=== PATIENT | female | born 1950 | race Caucasian/White ===

== ENCOUNTER 2018-03-07 10:08 | Emergency (ER) | payer MEDICARE ==
[2018-03-07 10:42] VITALS: BP 102/54
--- NOTE | 2018-03-07 11:42 | UC ---
Skin Complaint HPI - HPI Summary HPI Summary: 67 y/o female presents to the urgent care c/o poison tricia rash in her left forearm and abdomen since 03/02/2018. Pt reports she was seen at the ER on 2017 and Rx Medrol dose jovani and Benadryl PO to alleviate symptoms. however rash is worsen, has increased in size, painful and warm to touch. Pt has chills last night, but denies fever. Pain is 4/10 at touch. She has applied Aveno topical cream and Benadryl gel to alleviate symptoms w/o any improvement. Pain is worse at night time. Rash is also in the Rt hand. Pt denies SOB, throat tightening, abdominal pain, chest pain, N/V/D - History of Current Complaint Chief Complaint: UCSkin Time Seen by Provider: 03/07/18 11:13 Stated Complaint: POSION TRICIA Hx Obtained From: Patient ?: No - Menopausal Onset/Duration: Gradual Onset, Lasting Days, Still Present, Worse Since - 2 days Skin Exposure Onset/Duration: Days Ago - 5 days Timing: Constant Onset Severity: Mild Current Severity: Moderate Pain Intensity: 4 Pain Scale Used: 0-10 Numeric Location: Discrete - left forearm, Rt side of upper abdomen and Rt hand Character: Swelling, Pruritus, Pain, Hives, Redness Aggravating Factor(s): Humidity, Touch Alleviating Factor(s): Antihistamines, Other - Medrol dose jovani Associated Signs & Symptoms: Positive: Chills, Rash, Drainage - clear blisters, Tenderness. Negative: Nausea, Vomiting, Numbness, Weakness, Difficulty Breathing, Fever, Chest Pain, Hoarseness, Throat Tightening Related History: Possible Reaction to: Environmental Exposure - Allergy/Home Medications Allergies/Adverse Reactions: Allergies Allergy/AdvReac Type Severity Reaction Status Date / Time soy Allergy GI Upset Verified 03/07/18 10:29 Review of Systems Constitutional: Negative Skin: Rash - left forearm, Rt side upper abdomen and Rt hand red rash, Other - itchiness, w/ clear blisters Eyes: Negative ENT: Negative Respiratory: Negative Cardiovascular: Negative Gastrointestinal: Negative Genitourinary: Negative Motor: Negative Neurovascular: Negative Musculoskeletal: Other: - left forearm pain s/p poison tricia exposure Neurological: Negative Psychological: Negative Is Patient Immunocompromised?: No All Other Systems Reviewed And Are Negative: Yes PMH/Surg Hx/FS Hx/Imm Hx Previously Healthy: Yes Other Respiratory History: sleep apnea - Surgical History Surgical History: None - Family History Known Family History: Positive: Hypertension - Social History Occupation: Employed Part-time Lives: With Family Alcohol Use: None Substance Use Type: None Smoking Status (MU): Never Smoked Tobacco Physical Exam - Summary Physical Exam Summary: Vital Signs Reviewed: Yes General: well developed, well nourished old female sitting in the examining table w/o any apparent distress. Eyes: Positive: Conjunctiva Clear - PERRLA, EOMI ENT: Positive: Normal ENT inspection, Hearing grossly normal, Pharynx normal, TMs normal Neck: Positive: Supple, Nontender, No Lymphadenopathy Respiratory: Positive: Chest nontender, Lungs clear, Normal breath sounds Cardiovascular: Positive: RRR, No Murmur, Pulses Normal Abdomen Description: Positive: Nontender, No Organomegaly, Soft. Negative: CVA Tenderness (R), CVA Tenderness (L) Bowel Sounds: Positive: Present Musculoskeletal: Positive: Strength Intact, ROM Intact, No Edema Neurological Exam: Normal Psychological Exam: Normal Skin: Positive: rashes - RT ventral side of left forearm w/ erythematous patch w/ indistinct borders, warm to touch, swelling and tender to palpation. w/ scattered clear blisters. and vesicles, particularly in linear streaks w/ mild signs of excoriation, no drainage observed, t Triage Information Reviewed: Yes Vital Signs: Initial Vital Signs Temp 97.9 F 03/07/18 10:34 Pulse 60 03/07/18 10:34 Resp 18 03/07/18 10:34 BP 102/54 03/07/18 10:34 Pulse Ox 99 03/07/18 10:34 Course/Dx - Course Course Of Treatment: 67 y/o female presents to the urgent care c/o poison tricia rash in her left forearm and abdomen since 03/02/2018. Pt reports she was seen at the ER on 03/04/2018 and Rx Medrol dose jovani and Benadryl PO to alleviate symptoms. however rash is worsen, has increased in size, painful and warm to touch. Pt has chills last night, but denies fever. Pain is 4/10 at touch. She has applied Aveno topical cream and Benadryl gel to alleviate symptoms w/o any improvement. Pain is worse at night time. Rash is also in the Rt hand. Pt denies SOB, throat tightening, abdominal pain, chest pain, N/V/D. Hx obtained. Pt w/ left forearm cellulitis s/p poison tricia. Pt Rx Keflex PO, Clobetasol topical cream. rash demarcated with a skin marker and Advised if rash doubles in size and if she develops fever to go to the ER for further treatment. Pt understood and agreed w/ plan of care. - Differential Diagnoses - Skin Complaint Differential Diagnoses: Abscess, Cellulitis, Contact Dermatitis, Local Allergic Reaction, MRSA, Poison Tricia, Poison [place], Urticaria - Diagnoses Provider Diagnoses: 1- Left forearm cellulitis. 2- Poison Tricia rash Discharge - Sign-Out/Discharge Documenting (check all that apply): Patient Departure All imaging exams completed and their final reports reviewed: No Studies - Discharge Plan Condition: Stable Disposition: HOME Prescriptions: Cephalexin CAP* [Keflex CAP*] 500 mg PO QID #28 cap Clobetasol 0.05% OINT* 1 applic TOPICAL BID #1 tube Patient Education Materials: Cellulitis (ED), Poison Tricia (ED) Forms: *Work Release Referrals: Viral Hdez MD [Primary Care Provider] - 3 Days Elodia Willett [Medical Doctor] - 3 Days Additional Instructions: 1-Please continue taking Medrol dose jovani as directed. 2- Start taking Keflex PO to alleivate cellulitis. If rash doubles in size despite taking antibiotic and you develop fever please go immediately to the Er for further treatment. 3- Continue taking Benadryl PO to alleviate itchiness. Apply Clobetasol topical cream as directed. Avoid exposure to the sun. 4-If symptoms do not improve or worsen please f/u with your PCP or Insulation And Flooring Assembler in 3 days for further evaluation and treatment. 5- If symptoms worsen and you develop SOB or difficulty breathing please go immediately to the ER for further management. - Billing Disposition and Condition Condition: STABLE Disposition: Home
== END 2018-03-07 11:52 | disposition home or self-care (01) ==
LOC: UCEAST 10:08
DX: L03.114 Cellulitis of left upper limb (principal); L23.7 Allergic contact dermatitis due to plants, except food
CPT/HCPCS: 99212; G0463

== ENCOUNTER 2018-11-30 08:37 | Emergency (ER) | payer MEDICARE ==
[2018-11-30 08:48] VITALS: BP 114/62
--- NOTE | 2018-11-30 09:14 | UC ---
Hip/Pelvis Pain - HPI Summary HPI Summary: Pt is 68 y/o female with hx of osteoarthritis and osteoporosis presenting with chronic right hip pain, worse x 3 days. 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 States she has been taking 200 mg ibuprofen intermittently without relief. States her right hip pain radiates into her groin. Denies bladder and bowel incontinence, dysuria, groin numbness and tingling, radiation of pain down right leg, extremity numbness, weakness, tingling. Denies fevers, chills, nausea, vomiting. Denies known injury or trauma. Requests an x-ray today to ensure there is no bony abnormality. - History Of Current Complaint Chief Complaint: UCBackPain Stated Complaint: RT HIP LEG/BACK PAIN Time Seen by Provider: 11/30/18 08:57 Hx Obtained From: Patient Onset/Duration: Worse Since - 3 days ago Timing: Constant Severity Initially: Mild Severity Currently: Moderate Pain Intensity: 8 Location: Discrete At: - right hip Character Of Pain: Aching Aggravating Factor(s): Movement Alleviating Factor(s): OTC Medications Associated Signs And Symptoms: Negative: Swelling, Redness, Bruising, Fever, Weakness - Allergies/Home Medications Allergies/Adverse Reactions: Allergies Allergy/AdvReac Type Severity Reaction Status Date / Time soy Allergy GI Upset Verified 11/30/18 08:42 PMH/Surg Hx/FS Hx/Imm Hx Previously Healthy: No - osteoarthritis, chronic right hip pain - Surgical History Surgical History: None - Family History Known Family History: Positive: Hypertension - Social History Alcohol Use: None Substance Use Type: None Smoking Status (MU): Never Smoked Tobacco Review of Systems All Other Systems Reviewed And Are Negative: Yes Constitutional: Negative: Fever, Chills Gastrointestinal: Negative: Vomiting, Nausea Musculoskeletal: Positive: Arthralgia - right hip. Negative: Edema Physical Exam Triage Information Reviewed: Yes Appearance: No Pain Distress Vital Signs: Initial Vital Signs Temp 98 F 11/30/18 08:43 Pulse 61 11/30/18 08:43 Resp 16 11/30/18 08:43 BP 114/62 11/30/18 08:43 Pulse Ox 99 11/30/18 08:43 Vital Signs Reviewed: Yes Eyes: Positive: Conjunctiva Clear ENT: Positive: Normal ENT inspection Respiratory: Positive: Lungs clear Cardiovascular: Positive: RRR Abdomen Description: Negative: Distended Musculoskeletal Exam: Other - No erythema, edema, bruising of back, right hip. no tenderness to palpation of right hip. no bony vertebral tenderness. no paraspinal tenderness. no rashes. Musculoskeletal: Positive: Strength Intact, ROM Intact Neurological: Positive: Alert Skin Exam: Normal Diagnostics - Radiology Right hip Radiology Interpretation Completed By: Radiologist Summary of Radiographic Findings: no acute osseous injury Hip Injury Course/Dx - Course Course Of Treatment: 68 y/o female with hx of osteoporosis and osteoarthritis, with chronic right hip pain, worse x 3 days. X-ray right hip negative for osseous injury and arthritis. Pain consistent with L2 dermatome radiculopathy. No bowel or other dysfunction. Ambulatory. Pain resolves when she lays flat. Discharged with prescription for lidoderm patches, medrol dose pack, mobic, norco. Recommended to f/u with PCP for further workup. seen in collaboration with the physician public health training assistant student. - Differential Dx/Diagnosis Differential Diagnosis/HQI/PQRI: Arthritis, Bursitis, Infection, Osteomyelitis, Sciatica Provider Diagnosis: Radiculopathy of lumbar region Discharge - Sign-Out/Discharge Documenting (check all that apply): Patient Departure All imaging exams completed and their final reports reviewed: Yes - Discharge Plan Condition: Improved Disposition: HOME Prescriptions: HYDROcodone/ACETAMIN 5-325 MG* [[place] 5-325 TAB*] 1 tab PO Q8H PRN #10 tab MDD 3 PRN Reason: more severe pain Lidocaine PATCH 5%* [Lidoderm 5% Patch*] 1 patch TRANSDERM DAILY PRN #1 unit PRN Reason: radicular pain Meloxicam [Mobic] 7.5 mg PO DAILY #30 tablet methylPREDNISolone [Medrol] 4 mg PO DAILY #1 tab.ds.pk Patient Education Materials: Lumbar Radiculopathy (ED) Referrals: Viral Hdez MD [Primary Care Provider] - Additional Instructions: Call your doctor today to schedule prompt follow-up. You may need advanced imaging such as MRI. - Physical therapy or respiratory care assistant may help. - Lying flat may help. - Lidocaine patches were prescribed. If you're not able to obtain these from the pharmacy you can get [id number] lidocaine 4% patches. Your doctor may have to preauthorized the prescribed medication. Return with inability to walk, fever, difficulty with bowel or bladder, worse or other concerns. - Billing Disposition and Condition Condition: IMPROVED Disposition: Home - Attestation Statements Document Initiated by Paige: Yes Documenting Scribe: ANMOL Russell Provider For Whom Scribe is Documenting (Include Credential): Dr. Felipe Scribe Attestation: Cristina Crooks PA-S, scribed for Dr. Felipe on 11/30/18 at 1045. Scribe Documentation Reviewed: Yes Provider Attestation: The documentation as recorded by the paige, ANMOL Russell accurately reflects the service I personally performed and the decisions made by Dr. Destinee cheng Status of Scribe Document: Viewed
[2018-11-30] MEDS ORDERED: Ibuprofen TAB* 600 MG PO ONE (09:19)
== END 2018-11-30 10:20 | disposition home or self-care (01) ==
LOC: UCEAST 08:37
DX: M54.16 Radiculopathy, lumbar region (principal)
CPT/HCPCS: 99212; A9270-GY; G0463

== ENCOUNTER 2019-03-26 14:15 | Emergency (ER) | payer MEDICARE ==
[2019-03-26 14:59] VITALS: BP 114/47
--- NOTE | 2019-03-26 15:14 | UC ---
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 Minimal cough and no shortness of breath. No hx of asthma or pneumonia. Uses steroid nasal spray daily. - History of Current Complaint Chief Complaint: UCRespiratory Stated Complaint: CONGESTED Time Seen by Provider: 03/26/19 14:39 Hx Obtained From: Patient Onset/Duration: Gradual Onset, Lasting Days - 4 Severity: Moderate Pain Intensity: 0 Cough: Nonproductive Associated Signs & Symptoms: Positive: Dysphagia, Sinus Discomfort, Fever - subjective--states this is a high temp for her.. Negative: Wheezing, Hoarseness , Vomiting - Epiglottits Risk Factors Epiglottis Risk Factors: Negative - Allergies/Home Medications Allergies/Adverse Reactions: Allergies Allergy/AdvReac Type Severity Reaction Status Date / Time soy Allergy GI Upset Verified 03/26/19 14:55 PMH/Surg Hx/FS Hx/Imm Hx - Additional Past Medical History Additional PMH: chronic back pain from disc disease. Previously Healthy: Yes Neurological History: Migraine - Surgical History Surgical History: Yes Surgery Procedure, Year, and Place: WISDOM TEETH REMOVED. - Family History Known Family History: Positive: Cardiac Disease - mother, living, has had CABG, Hypertension - Social History Occupation: Employed Part-time - 10 hours per week Lives: With Family Alcohol Use: None Substance Use Type: None Smoking Status (MU): Never Smoked Tobacco Review of Systems All Other Systems Reviewed And Are Negative: Yes Constitutional: Positive: Fatigue Skin: Positive: Negative Eyes: Positive: Negative ENT: Positive: Sore Throat, Ear Ache, Nasal Discharge, Sinus Congestion Respiratory: Positive: Negative. Negative: Shortness Of Breath, Cough Cardiovascular: Positive: Negative Gastrointestinal: Positive: Negative Genitourinary: Positive: Negative Motor: Positive: Other - back soreness Neurovascular: Positive: Negative Musculoskeletal: Positive: Arthralgia Neurological: Positive: Negative Psychological: Positive: Negative Physical Exam Triage Information Reviewed: Yes Appearance: Ill-Appearing - looks mildly unwell and fatigued Vital Signs: Initial Vital Signs Temp 98.3 F 03/26/19 14:56 Pulse 63 03/26/19 14:56 Resp 18 03/26/19 14:56 BP 114/47 03/26/19 14:56 Pulse Ox 100 03/26/19 14:56 Eyes: Positive: Conjunctiva Clear ENT: Positive: Pharynx normal, TMs normal - very mild retraction Neck: Positive: Supple, Nontender, No Lymphadenopathy Respiratory: Positive: Lungs clear, Normal breath sounds Cardiovascular: Positive: RRR, No Murmur Neurological Exam: Normal Neurological: Positive: Alert, Muscle Tone Normal Psychological Exam: Normal Throat Pain/Nasal Course/Dx - Course Course Of Treatment: symptomatic treatment of viral URI. - Differential Dx/Diagnosis Differential Diagnosis/HQI/PQRI: Laryngitis, Pharyngitis, URI Provider Diagnosis: Viral upper respiratory infection Discharge ED - Sign-Out/Discharge Documenting (check all that apply): Patient Departure All imaging exams completed and their final reports reviewed: No Studies - Discharge Plan Condition: Stable Disposition: HOME Patient Education Materials: Upper Respiratory Infection (ED) Referrals: Viral Hdez MD [Primary Care Provider] - Additional Instructions: You have a viral respiratory illness which should resolve on its own. Add acetaminophen for control of ear pain and sinus discomfort. If you have increasing fever, cough and shortness of breath, please have a follow up assessment. - Billing Disposition and Condition Condition: STABLE Disposition: Home
== END 2019-03-26 15:25 | disposition home or self-care (01) ==
LOC: UCEAST 14:15
DX: J06.9 Acute upper respiratory infection, unspecified (principal); R13.10 Dysphagia, unspecified; G89.29 Other chronic pain; M54.9 Dorsalgia, unspecified; M51.9 Unspecified thoracic, thoracolumbar and lumbosacral intervertebral disc disorder; M25.50 Pain in unspecified joint; Z91.018 Allergy to other foods
CPT/HCPCS: 99211; G0463

== ENCOUNTER 2019-08-08 10:12 | Emergency (ER) | payer MEDICARE ==
[2019-08-08 11:11] VITALS: BP 97/48
--- NOTE | 2019-08-08 11:12 | UC ---
Respiratory Complaint HPI - HPI Summary HPI Summary: 2 WEEKS OF EAR ITCHINESS/DISCOMFORT, COUGH, SCRATCHY THROAT AND POSTNASAL DRAINAGE. NO FEVER, NAUSEA/VOMITING. - History of Current Complaint Chief Complaint: UCGeneralIllness Stated Complaint: EARPAIN, SORE THROAT Time Seen by Provider: 08/08/19 10:42 Hx Obtained From: Patient Onset/Duration: Gradual Onset, Lasting Weeks, Still Present Timing: Constant Severity Initially: Moderate Severity Currently: Moderate Pain Intensity: 5 Pain Scale Used: 0-10 Numeric Character: Cough: Nonproductive Aggravating Factors: Nothing Alleviating Factors: Nothing Associated Signs And Symptoms: Positive: URI, Nasal Congestion. Negative: Dyspnea, Fever, Wheezing - Allergies/Home Medications Allergies/Adverse Reactions: Allergies Allergy/AdvReac Type Severity Reaction Status Date / Time risedronate sodium Allergy Severe See Comment Verified 08/08/19 10:34 [From Actonel] soy Allergy Unknown GI Upset Verified 08/08/19 10:34 MALTED Allergy Unknown See Comment Uncoded 08/08/19 10:34 PMH/Surg Hx/FS Hx/Imm Hx Previously Healthy: Yes - Surgical History Surgical History: Yes Surgery Procedure, Year, and Place: WISDOM TEETH REMOVED. - Family History Known Family History: Positive: Cardiac Disease - mother, living, has had CABG, Hypertension - Social History Alcohol Use: None Substance Use Type: None Smoking Status (MU): Never Smoked Tobacco Review of Systems All Other Systems Reviewed And Are Negative: Yes Constitutional: Positive: Negative ENT: Positive: Sore Throat, Ear Ache Respiratory: Positive: Cough Cardiovascular: Positive: Negative Gastrointestinal: Positive: Negative Physical Exam Triage Information Reviewed: Yes Appearance: Well-Appearing, No Pain Distress, Well-Nourished Vital Signs: Initial Vital Signs Temp 97.9 F 08/08/19 10:30 Pulse 61 08/08/19 10:30 Resp 16 08/08/19 10:30 BP 97/38 08/08/19 10:30 Pulse Ox 99 08/08/19 10:30 Vital Signs Reviewed: Yes Eyes: Positive: Conjunctiva Clear ENT: Positive: Hearing grossly normal, Pharynx normal, TMs normal Neck: Positive: Supple, Nontender, No Lymphadenopathy Respiratory Exam: Normal Cardiovascular Exam: Normal Abdomen Description: Positive: Soft Musculoskeletal: Positive: No Edema Neurological: Positive: Alert Psychological: Positive: Age Appropriate Behavior Skin: Negative: Rashes Respiratory Course/Dx - Course Course Of Treatment: PHYSICAL EXAM TODAY IS UNREMARKABLE. BLOOD PRESSURE IS NOTED TO BE 97/48 HOWEVER PATIENT STATES HER BASELINE BP IS IN THE 90S OVER 50S. SHE DENIES ANY DIZZINESS, LIGHTHEADEDNESS, NAUSEA, SHORTNESS OF BREATH, CHEST PAIN OR SYNCOPE/ PRESYNCOPE. GIVEN THE LENGTH OF TIME SHE HAS BEEN FEELING ILL WILL GO AHEAD AND COVER WITH AN ANTIBIOTIC. ADVISED TO TAKE FOR THE FULL COURSE. REST, HYDRATE, OTC MEDS NEEDED. FOLLOW-UP WITH HER PCP IN A WEEK IF SHE IS NOT IMPROVED. - Differential Dx/Diagnosis Provider Diagnosis: Acute bronchitis Discharge ED - Sign-Out/Discharge Documenting (check all that apply): Patient Departure All imaging exams completed and their final reports reviewed: No Studies - Discharge Plan Condition: Stable Disposition: HOME Prescriptions: Azithromycin 500 mg PO DAILY #5 tablet Patient Education Materials: Acute Bronchitis (ED) Referrals: Viral Hdez MD [Primary Care Provider] - 1 Week Additional Instructions: PHYSICAL EXAM TODAY UNREMARKABLE. NO EAR INFECTION, THROAT LOOKS NORMAL, LUNGS ARE CLEAR BUT GIVEN THE LENGTH OF TIME YOU HAVE BEEN ILL WE WILL COVER YOU WITH ANTIBIOTICS. TAKE THE MEDICINE FOR THE FULL COURSE. REST, HYDRATE, OTC MEDS NEEDED. SEEK FOLLOW-UP WITH YOUR PCP IF YOU ARE NOT IMPROVING OVER THE NEXT 1- 2 WEEKS. - Billing Disposition and Condition Condition: STABLE Disposition: Home
== END 2019-08-08 11:22 | disposition home or self-care (01) ==
LOC: UCEAST 10:12
DX: J20.9 Acute bronchitis, unspecified (principal); H92.09 Otalgia, unspecified ear; Z88.8 Allergy status to other drugs, medicaments and biological substances; Z91.018 Allergy to other foods
CPT/HCPCS: 99212; G0463